=== PATIENT | male | born 1945 | race Caucasian/White ===

== ENCOUNTER → 2018-11-28 | Outpatient (CLI) | payer BC ==
[~2018-11-28] MED LIST: ACET325T14 PO; ALLO300T PO; ASPI81TA45 PO; BENA20TA4 PO; DILT300C42 PO; DOXA2TAB9 PO; SIMV20TA3 PO
== END | disposition home or self-care (01) ==
LOC: MERGE 13:51 → CVU 13:51
PROVIDERS: ATTEND Internal Medicine Cardiovascular Disease
DX: I08.2 Rheumatic disorders of both aortic and tricuspid valves (principal); I10 Essential (primary) hypertension; I48.91 Unspecified atrial fibrillation; Z95.0 Presence of cardiac pacemaker
CPT/HCPCS: 93306

== ENCOUNTER → 2019-11-09 | Outpatient (CLI) | payer BC ==
[~2019-11-09] MED LIST changes: +APIX5TAB PO; +ATOR20TA37 PO; +B CO1TAB14 PO; -BENA20TA4 PO; +BENA20TA54 PO; +CARV-39 PO; +CHOL10003 PO; +DIGO125T PO; +HYDR-3342 PO; +MULT1TAB60 PO; +SILD100T PO; +UBID100C24 PO
[2019-11-09 13:15] LABS: ANION GAP 5 mmol/L (5-15); CALCIUM 9.6 mg/dL (8.5-10.1); CHLORIDE 104 mmol/L (98-107)
[2019-11-09 13:30] LABS: CREATININE 1.29 mg/dL (0.7-1.3)
== END | disposition home or self-care (01) ==
LOC: CFH 08:04
PROVIDERS: ATTEND Internal Medicine Cardiovascular Disease
DX: I48.91 Unspecified atrial fibrillation (principal); I10 Essential (primary) hypertension
CPT/HCPCS: 36415; 80048; 80162

== ENCOUNTER 2019-11-18 09:13 | Outpatient (CLI) | payer BC | END 2019-11-18 23:59 | disposition home or self-care (01) | LOC: CVU 09:13 | PROVIDERS: ATTEND Internal Medicine Cardiovascular Disease | DX: I08.1 Rheumatic disorders of both mitral and tricuspid valves (principal); I25.10 Atherosclerotic heart disease of native coronary artery without angina pectoris; Z95.0 Presence of cardiac pacemaker | CPT/HCPCS: 93306 ==

== ENCOUNTER 2020-02-05 07:35 | Outpatient (CLI) | payer BC ==
[~2020-02-05 07:35] MED LIST changes: -DIGO125T PO; +DIGO125T85 PO; +SIMV20TA19 PO; -SIMV20TA3 PO
[2020-02-05 12:50] LABS: ALANINE AMINOTRANSFERASE 24 U/L (12-78); ALBUMIN 3.5 g/dL (3.4-5.0); ANION GAP 3 mmol/L (5-15); CALCIUM 10.1 mg/dL (8.5-10.1); CHLORIDE 107 mmol/L (98-107); CREATININE 1.35 mg/dL (0.7-1.3)
[2020-02-05 13:06] LABS: ALKALINE PHOSPHATASE 62 U/L (45-117); BILIRUBIN,TOTAL 0.6 mg/dL (0.2-1.0); CHOL/HDL RATIO 3.9; CHOLESTEROL, TOTAL 135 mg/dL (140-239); HDL CHOL % 26 % (26-37); HDL CHOLESTEROL (DIRECT) 35 mg/dL (40-60); LDL CHOLESTEROL,CALCULATED 77 mg/dL (54-169); LDL/HDL RATIO 2.2 (0.5-3.0); TOTAL PROTEIN 7.4 g/dL (6.4-8.2); TRIGLYCERIDES 117 mg/dL (50-200); VLDL CHOLESTEROL 23 mg/dL (0-25)
== END 2020-02-05 23:59 | disposition home or self-care (01) ==
LOC: CFH 07:35
PROVIDERS: ATTEND Internal Medicine Cardiovascular Disease
DX: E78.5 Hyperlipidemia, unspecified (principal)
CPT/HCPCS: 36415; 80053; 80061; 80162